=== PATIENT | female | born 1990 | race Caucasian/White ===

== ENCOUNTER 2017-02-15 01:27 | Emergency (ER) | payer OTHER ==
[~2017-02-15] VITALS: Ht 162.6 cm; Wt 50.0 kg
[2017-02-15 01:53] VITALS: BP 123/71; PULSE 85; RESP 16; TEMP 98.2; O2SAT 98
[2017-02-15] MEDS ORDERED: ALPRAZolam 0.5 MG TAB PO ONE (02:45)
[2017-02-15 03:28] LABS: BLOOD, URINE NEG (NEG); COMMENT (UR) CULT NOT INDICATED; CULTURE IF INDICATED CULT NOT INDICATED; GLUCOSE,URINE NEG (NEG); KETONE, URINE NEG (NEG); NITRITE,URINE NEG (NEG); PH, URINE 6.5 (5.0-8.5); SQUAMOUS EPITHELIAL CELL URINE 1 /hpf (0-5); URINE COLOR LIGHT-YELLOW (YELLW/STRAW)
[2017-02-15 03:30] LABS: AUTOMATED NEUTROPHIL # 3.5 TH/MM3 (1.8-7.7); BASOPHIL # 0.1 TH/MM3 (0-0.2); BASOPHIL % 1.4 % (0.0-2.0); EOSINOPHIL # 0.2 TH/MM3 (0-0.4); EOSINOPHIL % 3.5 % (0.0-4.0); HEMATOCRIT 43.3 % (35.0-46.0); HEMO FLAGS DIFF FINAL; LYMPH % 26.6 % (9.0-44.0); LYMPHOCYTE # 1.7 TH/MM3 (1.0-4.8); MEAN CELL VOLUME 92.4 FL (80.0-100.0); MEAN CORPUSCULAR HEMOGLOBIN 31.6 PG (27.0-34.0); MEAN CORPUSCULAR HGB CONC 34.2 % (32.0-36.0); MONO % 12.5 % (0.0-8.0); PLATELET COUNT 267 TH/MM3 (150-450); RED BLOOD COUNT 4.69 MIL/MM3 (4.00-5.30); RED CELL DISTRIBUTION WIDTH 12.5 % (11.6-17.2); WHITE BLOOD COUNT 6.3 TH/MM3 (4.0-11.0)
[2017-02-15 03:34] LABS: AMPHETAMINE, URINE NEG (NEG); BARBITURATES, URINE NEG (NEG); COCAINE, URINE NEG (NEG)
[2017-02-15 04:15] LABS: ALT (GPT) 32 U/L (10-53); ANION GAP 9 MEQ/L (5-15); AST (GOT) 23 U/L (15-37); BICARBONATE 25.6 MEQ/L (21.0-32.0); BLOOD UREA NITROGEN 11 MG/DL (7-18); CHLORIDE 105 MEQ/L (98-107); GLOMERULAR FILTRATION RATE 97 ML/MIN (>89); POTASSIUM 3.5 MEQ/L (3.5-5.1); SODIUM (NA) 140 MEQ/L (136-145)
--- NOTE | 2017-02-15 04:40 | PD ---
HPI Chief Complaint: Psychiatric Symptoms Time Seen by Provider: 02:37 Travel History International Travel<30 days: No Contact w/Intl Traveler<30days: No Traveled to known affect area: No History of Present Illness HPI The patient is a 26 year old female who presents to the [facility] emergency department with a history of reportedly getting into an argument with her boyfriend by text earlier in the evening. The patient reports that she became angry and told her boyfriend by text "sick of it all" and that she was going to go to the [facility]. She reports that he then thought that she plan to jump from the bridge. He called the police and the patient was Ramos acted prior to arrival. The patient reports that she does have a history of anxiety and depression, however she does not take any medication for it. She however denies any suicidal or homicidal ideations. She reports that she was just frustrated with him. She reports that she has been under a great deal of stress recently as she has recently started a new full-time job. On review of systems, the patient denies any recent fevers, cough, congestion, neck pain, chest pain, shortness of breath, abdominal pain, vomiting, diarrhea, urinary symptoms, or neurologic symptoms. LMP: 1 week ago PFSH Past Medical History Narrative Medical The patient's past medical history is significant for anxiety disorder, depression, fibromyalgia, high functioning autism. Anxiety: Yes Medical other: Yes (autism) ?: Not LMP: a week ago Past Surgical History Narrative Surgical The patient's past surgical history is significant for wisdom teeth extraction Other Surgery: Yes (wisdom teeth removed) Social History Alcohol Use: Yes (occassional) Tobacco Use: No Substance Use: No Allergies-Medications (Allergen,Severity, Reaction): Coded Allergies: No Known Allergies (Unverified , 02/15/17) Narrative Medication Oral contraceptive Review of Systems Except as stated in HPI: all other systems reviewed are Neg General / Constitutional: No: Fever Eyes: No: Visual changes HENT: No: Headaches Cardiovascular: No: Chest Pain or Discomfort Respiratory: No: Shortness of Breath Gastrointestinal: No: Abdominal Pain Genitourinary: No: Dysuria Musculoskeletal: No: Pain Skin: No Rash Neurologic: No: Weakness Psychiatric: Positive: Anxiety, Depression, Mood Disorder, No: Suicidal Ideations, Disorder of Thought, Substance Abuse, Homicidal Ideation Endocrine: No: Polydipsia Hematologic/Lymphatic: No: Easy Bruising Physical Exam Narrative General: The patient is a well-developed well-nourished female in no acute distress, initially tearful on arrival regarding her situation. Head and Neck exam: Head is normocephalic atraumatic. Eyes: EOMI, pupils are equal round and reactive to light. Nose: Midline septum with pink mucous membranes Mouth: Dentition unremarkable. Moist mucus membranes. Posterior oropharynx is not erythematous. No tonsillar hypertrophy. Uvula midline. Airway patent. Neck: No palpable lymphadenopathy. No nuchal rigidity. No thyromegaly. Cardiovascular: Regular rate and rhythm without murmurs, gallops, or rubs. Lungs: Clear to auscultation bilaterally. No wheezes, rhonchi, or rales. Abdomen: Soft, without tenderness to palpation in all 4 quadrants of the abdomen. No guarding, rebound, or rigidity. Normal bowel sounds are audible. No tenderness on palpation of McBurney's point. Extremities: No clubbing, cyanosis, or edema. Neurologic Exam: Grossly nonfocal. Skin Exam: No rash noted. Intact skin that is warm and dry. Data Data Last Documented VS Vital Signs Date Time Temp Pulse Resp B/P Pulse Ox O2 Delivery O2 Flow Rate FiO2 02/15/17 01:53 98.2 85 16 123/71 98 Room Air Orders Complete Blood Count With Diff (02/15/17 02:37) Comprehensive Metabolic Panel (02/15/17 02:37) Thyroid Stimulating Hormone (02/15/17 02:37) Urinalysis - C+S If Indicated (02/15/17 02:37) Ed Urine Pregnancytest Poc (02/15/17 02:37) Psych Screen (02/15/17 02:37) Drug Screen, Random Urine (02/15/17 02:37) Alcohol (Ethanol) (02/15/17 02:37) Alprazolam (Xanax) (02/15/17 02:45) Labs Laboratory Tests Test 02/15/17 03:05 White Blood Count 6.3 TH/MM3 Red Blood Count 4.69 MIL/MM3 Hemoglobin 14.8 GM/DL Hematocrit 43.3 % Mean Corpuscular Volume 92.4 FL Mean Corpuscular Hemoglobin 31.6 PG Mean Corpuscular Hemoglobin 34.2 % Concent Red Cell Distribution Width 12.5 % Platelet Count 267 TH/MM3 Mean Platelet Volume 9.3 FL Neutrophils (%) (Auto) 56.0 % Lymphocytes (%) (Auto) 26.6 % Monocytes (%) (Auto) 12.5 % Eosinophils (%) (Auto) 3.5 % Basophils (%) (Auto) 1.4 % Neutrophils # (Auto) 3.5 TH/MM3 Lymphocytes # (Auto) 1.7 TH/MM3 Monocytes # (Auto) 0.8 TH/MM3 Eosinophils # (Auto) 0.2 TH/MM3 Basophils # (Auto) 0.1 TH/MM3 CBC Comment DIFF FINAL Differential Comment Urine Color LIGHT-YELLOW Urine Turbidity CLEAR Urine pH 6.5 Urine Specific [place] 1.008 Urine Protein NEG mg/dL Urine Glucose (UA) NEG mg/dL Urine Ketones NEG mg/dL Urine Occult Blood NEG Urine Nitrite NEG Urine Bilirubin NEG Urine Urobilinogen LESS THAN 2.0 MG/DL Urine Leukocyte Esterase NEG Urine RBC 1 /hpf Urine WBC LESS THAN 1 /hpf Urine Squamous Epithelial 1 /hpf Cells Microscopic Urinalysis Comment CULT NOT INDICATED Sodium Level 140 MEQ/L Potassium Level 3.5 MEQ/L Chloride Level 105 MEQ/L Carbon Dioxide Level 25.6 MEQ/L Anion Gap 9 MEQ/L Blood Urea Nitrogen 11 MG/DL Creatinine 0.72 MG/DL Estimat Glomerular Filtration 97 ML/MIN Rate Random Glucose 88 MG/DL Calcium Level 9.1 MG/DL Aspartate Amino Transf 23 U/L (AST/SGOT) Alanine Aminotransferase 32 U/L (ALT/SGPT) Albumin 4.4 GM/DL Urine Opiates Screen NEG Urine Barbiturates Screen NEG Urine Amphetamines Screen NEG Urine Benzodiazepines Screen NEG Urine Cocaine Screen NEG Urine Cannabinoids Screen NEG Ethyl Alcohol Level 27 MG/DL [facility] Medical Decision Making Medical Screen Exam Complete: Yes Emergency Medical Condition: Yes Medical Record Reviewed: Yes Differential Diagnosis Attention seeking behavior, versus depression with suicidal ideations, versus substance induced mood disorder Narrative Course During the course of the patients emergency department visit, the patients history, examination, and differential diagnosis were reviewed with the patient. The patient had blood work sent for analysis. The patient's was on a nuclear reactor engineer with oximetry and blood pressure monitoring. The patient was tearful and anxious on arrival. The patient was given Xanax 0.5 mg by mouth 1. The patient's Ramos act was reviewed. A psychiatric screen was ordered. The patients laboratory studies were reviewed and remarkable for a white count of 6.3, hemoglobin 14.8, platelets 267 with monocytes 12.5, CMP is unremarkable. Urinalysis is within normal limits, alcohol level XXVII, urine drug screen is negative. The patient has been medically cleared for evaluation by the psychiatric screener and psychiatrist under a Ramos act. Diagnosis Primary Impression: Anxiety disorder Qualified Code: F41.9 - Anxiety disorder, unspecified type Clarita Jc MD Feb 15, 2017 04:39
[2017-02-15 04:41] LABS: ALKALINE PHOSPHATASE 45 U/L (45-117); TOTAL BILIRUBIN ADULT 0.3 MG/DL (0.2-1.0)
--- NOTE | 2017-02-15 09:54 | PD ---
History of Present Illness Chief Complaint: Psychiatric Symptoms Time Seen by Provider: 09:15 Travel History International Travel<30 Days: No Contact w/Intl Traveler<30days: No Known affected area: No Legal Status Legal Status: Ramos Act Ramos Act Signed By: History of Present Illness: 26-year-old female who got into an argument with her live-in boyfriend and apparently threatened to jump off the [employer] [employer] [address]. She was Ramos acted by law enforcement. Patient now reporting that she will not attempt to commit suicide. She indicates that she is sick of her relationship with her boyfriend and that they argued incessantly. However, they also have [employer] accounts, live together, and she is looking to call him for a ride from this facility. She wants this physician to look at her phone so that I might appreciate the nature of the difficulty in her relationship. This physician explained that her request was not reasonable as I am not here to act as a referee or therapist for her relationship. Patient then reports that the stress of her relationship is the reason she made the threat. She has family [place] and states she can call them and they would assist her. She then states she does not know what to do. This physician feels the patient's difficulties are at least in part due to a personality style which is cluster B in nature. She is not psychotic and her cognition is intact. She is able to verbally contract for safety. Therefore this physician feels she can be treated on an outpatient basis. PFSH Past Medical History Anxiety: Yes Medical other: Yes (autism) ?: Not LMP: a week ago Past Surgical History Other Surgery: Yes (wisdom teeth removed) Psychiatric History Psychiatric History Hx Psychiatric Treatment: Patient denies a previous history of psychiatric treatment or medications. History of Inpatient Treatment: No Guns or firearms in home: No Social History Hx Alcohol Use: Yes (occassional) Hx Tobacco Use: No Hx Substance Use: No Allergies-Medications (Allergen,Severity, Reaction): Coded Allergies: No Known Allergies (Unverified , 02/15/17) Review of Systems Except as stated in HPI: all other systems reviewed are Neg Exam Alert: Yes [place]: Person, Place, Date, Situation Mood: Anxious Affect: Other Speech: Clear Eye Contact: Normal Memory Intact: Immediate, Recent, Remote Insight/Judgement Adequate MDM Medical Decision Making Medical Record Reviewed: Yes Assessment/Plan This physician spoke with the patient's nurse and reviewed the records. She has been cooperative in the emergency department. She continues to demonstrate inappropriate desire to engage this physician in her personal conflict with her boyfriend. However, this is felt to be personality driven rather than the result of a major mental illness. Although she remains at risk for self-harm, due to her judgment and insight regarding the relationship with the boyfriend, she is competent to make the decision to go home. This physician feels there are 2 problems surfacing at this time, one being the relationship problem with the boyfriend and the other being an underlying personality disorder. Outpatient treatment is recommended but this physician feels that admitting her to the psychiatry inpatient unit would be counter therapeutic and only enable her current behavior. Orders Complete Blood Count With Diff (02/15/17 02:37) Comprehensive Metabolic Panel (02/15/17 02:37) Thyroid Stimulating Hormone (02/15/17 02:37) Urinalysis - C+S If Indicated (02/15/17 02:37) Ed Urine Pregnancytest Poc (02/15/17 02:37) Psych Screen (02/15/17 02:37) Drug Screen, Random Urine (02/15/17 02:37) Alcohol (Ethanol) (02/15/17 02:37) Alprazolam (Xanax) (02/15/17 02:45) Diet Regular Basic (02/15/17 Breakfast) Results Vital Signs Date Time Temp Pulse Resp B/P Pulse Ox O2 Delivery O2 Flow Rate FiO2 02/15/17 01:53 98.2 85 16 123/71 98 Room Air Laboratory Tests Test 02/15/17 03:05 White Blood Count 6.3 Red Blood Count 4.69 Hemoglobin 14.8 Hematocrit 43.3 Mean Corpuscular Volume 92.4 Mean Corpuscular Hemoglobin 31.6 Mean Corpuscular Hemoglobin 34.2 Concent Red Cell Distribution Width 12.5 Platelet Count 267 Mean Platelet Volume 9.3 Neutrophils (%) (Auto) 56.0 Lymphocytes (%) (Auto) 26.6 Monocytes (%) (Auto) 12.5 Eosinophils (%) (Auto) 3.5 Basophils (%) (Auto) 1.4 Neutrophils # (Auto) 3.5 Lymphocytes # (Auto) 1.7 Monocytes # (Auto) 0.8 Eosinophils # (Auto) 0.2 Basophils # (Auto) 0.1 CBC Comment DIFF FINAL Differential Comment Urine Color LIGHT-YELLOW Urine Turbidity CLEAR Urine pH 6.5 Urine Specific [place] 1.008 Urine Protein NEG Urine Glucose (UA) NEG Urine Ketones NEG Urine Occult Blood NEG Urine Nitrite NEG Urine Bilirubin NEG Urine Urobilinogen LESS THAN 2.0 Urine Leukocyte Esterase NEG Urine RBC 1 Urine WBC LESS THAN 1 Urine Squamous Epithelial 1 Cells Microscopic Urinalysis Comment CULT NOT INDICATED Sodium Level 140 Potassium Level 3.5 Chloride Level 105 Carbon Dioxide Level 25.6 Anion Gap 9 Blood Urea Nitrogen 11 Creatinine 0.72 Estimat Glomerular Filtration 97 Rate Random Glucose 88 Calcium Level 9.1 Total Bilirubin 0.3 Aspartate Amino Transf 23 (AST/SGOT) Alanine Aminotransferase 32 (ALT/SGPT) Alkaline Phosphatase 45 Total Protein 8.3 Albumin 4.4 Thyroid Stimulating Hormone 2.730 3rd Gen Urine Opiates Screen NEG Urine Barbiturates Screen NEG Urine Amphetamines Screen NEG Urine Benzodiazepines Screen NEG Urine Cocaine Screen NEG Urine Cannabinoids Screen NEG Ethyl Alcohol Level 27 Diagnosis Primary Impression: Adjustment disorder with mixed disturbance of emotions and conduct Additional Impression: Personality disorder Problem Qualifiers Jonah Carlos MD Feb 15, 2017 09:54
== END 2017-02-15 10:01 | disposition home or self-care (01) ==
LOC: NEPE 01:27
DX: F41.9 Anxiety disorder, unspecified (principal); F43.25 Adjustment disorder with mixed disturbance of emotions and conduct; F60.9 Personality disorder, unspecified; F84.0 Autistic disorder
CPT/HCPCS: 80053; 80307; 81001; 84443; 84703; 85025; 99283